=== PATIENT | female | born 1975 | race Caucasian/White ===

== ENCOUNTER 2018-07-19 17:35 | Emergency (ER) | payer BC ==
[~2018-07-19] VITALS: Ht 175.3 cm; Wt 69.2 kg
[2018-07-19 18:33] LABS: BASOPHILS # (AUTO) 0.06 x10^3/uL (0-0.1); BASOPHILS % (AUTO) 1 % (0-1); EOSINOPHILS % (AUTO) 3 % (1-7); LYMPHOCYTES # (AUTO) 2.53 x10^3/uL (1-3.4); LYMPHOCYTES % (AUTO) 29 % (22-44); MD NO; MEAN CORPUSCULAR HEMOGLOBIN 32.5 pg (27.0-34.8); MEAN CORPUSCULAR HGB CONC 33.8 g/dL (32.4-35.8); MEAN CORPUSCULAR VOLUME 96.1 fL (80-100); MEAN PLATELET VOLUME 7.7 fL (7.4-10.4); MONOCYTES # (AUTO) 0.64 x10^3/uL (0.2-0.8); MONOCYTES % (AUTO) 7 % (2-9); NEUTROPHILS # (AUTO) 5.16 x10^3/uL (1.8-6.8); NEUTROPHILS % (AUTO) 59 % (42-75); PLATELET COUNT 447 x10^3/uL (130-400); RED BLOOD COUNT 4.14 x10^6/uL (3.82-5.3); RED CELL DISTRIBUTION WIDTH 17.6 % (9.6-15.2)
[2018-07-19 18:43] LABS: ALANINE AMINOTRANSFERASE 11 U/L (12-78); ALBUMIN 3.6 g/dL (3.4-5.0); ANION GAP 7 mmol/L (5-15); CALCIUM 9.2 mg/dL (8.5-10.1); CHLORIDE 111 mmol/L (98-107)
[2018-07-19 18:46] LABS: ALKALINE PHOSPHATASE 79 U/L (45-117); BILIRUBIN,TOTAL 0.3 mg/dL (0.2-1.0); CREATININE 0.95 mg/dL (0.55-1.02); SALICYLATE LEVEL 2.8 mg/dL (2.8-20.0); TOTAL PROTEIN 7.5 g/dL (6.4-8.2)
[2018-07-19 18:52] LABS: THYROID STIMULATING HORMONE 0.564 mIU/L (0.358-3.740)
[2018-07-19 18:54] LABS: ACETAMINOPHEN < 2 mcg/mL (10-30)
[2018-07-19 19:22] LABS: MICROSCOPIC INDICATED
[2018-07-19 19:23] LABS: AMPHETAMINE SCREEN, URINE Negative (Negative); BARBITURATE SCREEN, URINE Negative (Negative); BENZODIAZEPINE SCREEN, URINE Positive (Negative); CANNABINOID SCREEN, URINE Positive (Negative); COCAINE SCREEN, URINE Positive (Negative); METHADONE SCREEN, URINE Negative (Negative); OPIATE SCREEN, URINE Negative (Negative)
[2018-07-19 19:36] LABS: CULTURE INDICATED? YES
[2018-07-19 21:15] VITALS: BP 110/70
== END 2018-07-19 21:17 | disposition home or self-care (01) ==
LOC: ED 21:13
DX: R10.84 Generalized abdominal pain (principal); F10.10 Alcohol abuse, uncomplicated; F14.10 Cocaine abuse, uncomplicated; F12.10 Cannabis abuse, uncomplicated; F13.10 Sedative, hypnotic or anxiolytic abuse, uncomplicated; G89.29 Other chronic pain; J44.9 Chronic obstructive pulmonary disease, unspecified; F41.1 Generalized anxiety disorder; Z79.899 Other long term (current) drug therapy
CPT/HCPCS: 36415; 74021; 80053; 80307; 80329; 81001; 83690; 84443; 84703; 85025; 87086; 99285; G0480

== ENCOUNTER 2019-01-01 15:49 | Inpatient (IN) | payer BC ==
[~2019-01-01] VITALS: Ht 175.3 cm; Wt 81.1 kg
--- NOTE | 2019-01-01 15:57 | NUR ---
BIB [facility] AFTER PT CALLED 911 AFTER TAKING 5800 MG TRAZODONE AND 1 PINT VODKA IN AN SA ATTEMPT. PT STATES SHE TOOK PILLS AND ETOH AT 1500. PT AOX4. VSS INDUCTION BRAZER HR 90, RR 15, 94-96% RA, BS 160. HX SI W/ SA X3-4 TIMES. LAST ATTEMPT WAS IN SEPTEMBER 2018. PT RESTING ON GURNEY. MONITORS APPLIED. SECOND PIV INITIATED. EKG COMPLETED. WARM BLANKETS PROVIDED.
[2019-01-01] MEDS ORDERED: ESCI5TAB7 PO (16:05)
[2019-01-01] MEDS ORDERED: LAMO25TA6 PO (16:05)
[2019-01-01] MEDS ORDERED: LEVO150T PO (16:05)
[2019-01-01] MEDS ORDERED: TRAZ-137 PO (16:05)
[2019-01-01] MEDS ORDERED: CHARCOAL/SORBITOL 50 GM/240 ML ONE (16:08)
--- NOTE | 2019-01-01 16:18 | NUR ---
PT DRANK ALL CHARCOAL PO AND IMMEDIATELY HAD A LARGE 500 CC BOUT OF EMESIS. ERP NOTIFIED. NO NEED TO REPEAT DOSE OF CHARCOAL PER ERP.
[2019-01-01 16:24] LABS: BASOPHILS # (AUTO) 0.03 x10^3/uL (0-0.1); BASOPHILS % (AUTO) 0 % (0-1); EOSINOPHILS # (AUTO) 0.09 x10^3/uL (0-0.4); EOSINOPHILS % (AUTO) 1 % (1-7); LYMPHOCYTES # (AUTO) 2.46 x10^3/uL (1-3.4); LYMPHOCYTES % (AUTO) 29 % (22-44); MD NO; MEAN CORPUSCULAR HEMOGLOBIN 31.8 pg (27.0-34.8); MEAN CORPUSCULAR HGB CONC 33.7 g/dL (32.4-35.8); MEAN CORPUSCULAR VOLUME 94.3 fL (80-100); MONOCYTES # (AUTO) 0.45 x10^3/uL (0.2-0.8); MONOCYTES % (AUTO) 5 % (2-9); NEUTROPHILS # (AUTO) 5.53 x10^3/uL (1.8-6.8); NEUTROPHILS % (AUTO) 65 % (42-75); PLATELET COUNT 314 x10^3/uL (130-400); RED BLOOD COUNT 4.05 x10^6/uL (3.82-5.3); RED CELL DISTRIBUTION WIDTH 15.8 % (9.6-15.2)
[2019-01-01] MEDS ORDERED: SODIUM CHLORIDE 0.9% 1,000ML IVBOLUS ONE (16:30)
[2019-01-01] MEDS ORDERED: CHARCOAL/SORBITOL 50 GM/240 ML PO ONE (16:30)
[2019-01-01] MEDS ORDERED: ONDANSETRON 2MG/ML, 2ML IVPush ONE (16:30)
[2019-01-01 16:31] LABS: ALANINE AMINOTRANSFERASE 11 U/L (12-78); ALBUMIN 3.5 g/dL (3.4-5.0); ANION GAP 10 mmol/L (5-15); CALCIUM 8.5 mg/dL (8.5-10.1); CHLORIDE 112 mmol/L (98-107); CREATININE 0.88 mg/dL (0.55-1.02)
[2019-01-01 16:34] LABS: ALKALINE PHOSPHATASE 57 U/L (45-117); BILIRUBIN,TOTAL 0.2 mg/dL (0.2-1.0); TOTAL PROTEIN 6.8 g/dL (6.4-8.2)
[2019-01-01] MEDS ORDERED: ONDANSETRON 2MG/ML, 2ML ONE (16:34)
[2019-01-01 16:36] LABS: ACETAMINOPHEN < 2 mcg/mL (10-30)
--- NOTE | 2019-01-01 16:53 | NUR ---
RECEIVED REPORT FROM JAYA SERRANO. PT RESTING IN BED IN NAD. PT HAS EMESIS BAG IN CASE OF ANY MORE NAUSEA. PT ON MONITOR AND FAMILY AT BEDSIDE.
[2019-01-01] MEDS ORDERED: POTASSIUM CHLORIDE 20 MEQ TAB.ER.PRT ONE (16:56)
[2019-01-01] MEDS ORDERED: POTASSIUM CHLORIDE 20 MEQ TAB.ER.PRT PO ONE (17:00)
--- NOTE | 2019-01-01 17:05 | NUR ---
ALL BELONGINGS PLACED IN SECURITY LOCKER IN TWO BAGS AND LABELED WITH PT STICKERS.
--- NOTE | 2019-01-01 17:32 | NUR ---
PT TO GO TO FLOOR ONCE SITTER ARRIVES FROM NURSING OPS.
[2019-01-01 17:58] VITALS: BP 91/53
[2019-01-01] MEDS ORDERED: NICOTINE 7 MG/24 HR PATCH.TD24 TD SCH (18:00)
[2019-01-01] MEDS ORDERED: LIDODERM 5% PATCH TD PRN (18:00)
[2019-01-01] MEDS ORDERED: ENALAPRILAT 1.25 MG/ML, 2ML IVPush PRN (18:00)
[2019-01-01] MEDS: HEPARIN 5,000 UNITS/ML, 1ML SQ SCH (18:09)
[2019-01-01] MEDS: SODIUM CHLORIDE 0.9% 1,000 ML IV SCH (18:39)
[2019-01-01 19:17] VITALS: BP 91/53
[2019-01-01 19:54] LABS: AMPHETAMINE SCREEN, URINE Negative (Negative); BARBITURATE SCREEN, URINE Negative (Negative); BENZODIAZEPINE SCREEN, URINE Negative (Negative); CANNABINOID SCREEN, URINE Negative (Negative); COCAINE SCREEN, URINE Negative (Negative); METHADONE SCREEN, URINE Negative (Negative); OPIATE SCREEN, URINE Negative (Negative)
[2019-01-01] MEDS: LAMOTRIGINE 25 MG TABLET PO SCH (20:54)
[2019-01-01 21:20] VITALS: BP 90/59
[2019-01-02] VITALS (12 sets, daily range): BP systolic 87–104; BP diastolic 46–75
[2019-01-02] MEDS: HEPARIN 5,000 UNITS/ML, 1ML SQ SCH ×3 (02:00→18:23)
[2019-01-02] MEDS: SODIUM CHLORIDE 0.9% 1,000 ML IV SCH ×2 (03:53→14:19)
[2019-01-02 04:09] LABS: ALANINE AMINOTRANSFERASE 9 U/L (12-78); ANION GAP 7 mmol/L (5-15); CALCIUM 7.9 mg/dL (8.5-10.1); CHLORIDE 116 mmol/L (98-107); CREATININE 0.79 mg/dL (0.55-1.02)
[2019-01-02 04:20] LABS: ALKALINE PHOSPHATASE 47 U/L (45-117); BILIRUBIN,TOTAL 0.2 mg/dL (0.2-1.0); THYROID STIMULATING HORMONE 0.735 mIU/L (0.358-3.740)
[2019-01-02 04:24] LABS: BASOPHILS # (AUTO) 0.03 x10^3/uL (0-0.1); BASOPHILS % (AUTO) 0 % (0-1); EOSINOPHILS # (AUTO) 0.11 x10^3/uL (0-0.4); EOSINOPHILS % (AUTO) 1 % (1-7); LYMPHOCYTES # (AUTO) 2.75 x10^3/uL (1-3.4); LYMPHOCYTES % (AUTO) 35 % (22-44); MD NO; MEAN CORPUSCULAR VOLUME 96.9 fL (80-100); MEAN PLATELET VOLUME 8.1 fL (7.4-10.4); MONOCYTES % (AUTO) 8 % (2-9); NEUTROPHILS # (AUTO) 4.49 x10^3/uL (1.8-6.8); NEUTROPHILS % (AUTO) 56 % (42-75); PLATELET COUNT 293 x10^3/uL (130-400); RED CELL DISTRIBUTION WIDTH 15.7 % (9.6-15.2)
[2019-01-02] MEDS: LEVOTHYROXINE 150 MCG TABLET PO SCH (05:55)
[2019-01-02] MEDS: ESCITALOPRAM 10MG TABLET PO SCH (10:37)
[2019-01-02] MEDS: LAMOTRIGINE 25 MG TABLET PO SCH ×2 (10:37→21:14)
[2019-01-02] MEDS: LORazepam 0.5MG TABLET PO PRN ×2 (14:19→18:23)
[2019-01-02] MEDS ORDERED: NICOTINE 14MG/24 HR PATCH.TD24 TD SCH (21:00)
[2019-01-03 00:24] VITALS: BP 117/70
[2019-01-03] MEDS: SODIUM CHLORIDE 0.9% 1,000 ML IV SCH ×2 (00:29→10:28)
[2019-01-03] MEDS: HEPARIN 5,000 UNITS/ML, 1ML SQ SCH ×2 (03:10→10:00)
[2019-01-03 03:12] VITALS: BP 96/61
[2019-01-03 03:47] VITALS: BP 98/64
[2019-01-03] MEDS: LEVOTHYROXINE 150 MCG TABLET PO SCH (05:00)
[2019-01-03 05:02] VITALS: BP 102/65
[2019-01-03] MEDS: LORazepam 0.5MG TABLET PO PRN (05:37)
[2019-01-03 08:02] VITALS: BP 95/62
[2019-01-03] MEDS: LAMOTRIGINE 25 MG TABLET PO SCH (08:36)
[2019-01-03] MEDS: ESCITALOPRAM 10MG TABLET PO SCH (08:36)
== END 2019-01-03 12:27 | DRG 918 ==
LOC: ED 17:04 → EDIP 17:05 → ED 17:13 → 4EST 17:43 → OBSVTOIN 17:47 → 4EST 17:56
PROVIDERS: ADMIT Family Medicine; ATTEND Family Medicine
DX: T43.212A Poisoning by selective serotonin and norepinephrine reuptake inhibitors, intentional self-harm, initial encounter (principal); Y92.89 Other specified places as the place of occurrence of the external cause; F32.9 Major depressive disorder, single episode, unspecified; F17.210 Nicotine dependence, cigarettes, uncomplicated; F10.129 Alcohol abuse with intoxication, unspecified; E89.0 Postprocedural hypothyroidism; J44.9 Chronic obstructive pulmonary disease, unspecified; E87.6 Hypokalemia; Z91.5 Personal history of self-harm; Z88.6 Allergy status to analgesic agent; G89.29 Other chronic pain
CPT/HCPCS: 36415; 80053; 80307; 80329; 83735; 84100; 84443; 84703; 85025; 93005; 96361; 96374; G0378; J1644; J2405; G0480; J7030

== ENCOUNTER 2020-10-26 18:21 | Emergency (ER) | payer BC, MEDICAID ==
[~2020-10-26] VITALS: Ht 175.3 cm; Wt 81.0 kg
[~2020-10-26 18:21] MED LIST: ESCI5TAB7 PO; LAMO25TA6 PO; LEVO150T PO; TRAZ-175 PO
--- NOTE | 2020-10-26 21:13 | NUR ---
UTILITIES GROUND WORKER: PT WHEELED BACK FROM LOBBY TO ROOM AT THIS TIME.
[2020-10-26 21:34] VITALS: BP 125/79
[2020-10-26] MEDS ORDERED: KETOROLAC 30 MG/1 ML IM ONE (22:00)
[2020-10-26] MEDS ORDERED: KETOROLAC 30 MG/1 ML ONE (22:10)
[2020-10-26] MEDS ORDERED: CEFTRIAXONE 1,000 MG ONE (22:44)
[2020-10-26] MEDS ORDERED: AZITHROMYCIN 500 MG TABLET ONE (22:44)
[2020-10-26] MEDS ORDERED: DEXAMETHASONE 4 MG TABLET ONE (22:45)
[2020-10-26] MEDS ORDERED: AZITHROMYCIN 500 MG TABLET PO ONE (23:00)
[2020-10-26] MEDS ORDERED: DEXAMETHASONE 4 MG TABLET PO ONE (23:00)
[2020-10-26] MEDS ORDERED: CEFTRIAXONE 1,000 MG IM ONE (23:00)
--- NOTE | 2020-10-26 23:00 | NUR ---
PT AMBULATED STEADILY TO DISCHARGE DESK.
== END 2020-10-26 23:03 | disposition home or self-care (01) ==
LOC: ED 22:30
DX: S90.821A Blister (nonthermal), right foot, initial encounter (principal); Z20.828 Contact with and (suspected) exposure to other viral communicable diseases; J12.9 Viral pneumonia, unspecified; F15.10 Other stimulant abuse, uncomplicated; R09.81 Nasal congestion; R05 Cough; M79.10 Myalgia, unspecified site; F17.210 Nicotine dependence, cigarettes, uncomplicated; X58.XXXA Exposure to other specified factors, initial encounter; Y93.89 Activity, other specified; Y92.89 Other specified places as the place of occurrence of the external cause; Y99.8 Other external cause status
CPT/HCPCS: 71045; 73630; 87635; 96372; 99284; J0696; J1885

== ENCOUNTER 2021-05-10 11:05 | Emergency (ER) | payer MEDICAID ==
[~2021-05-10] VITALS: Ht 175.3 cm; Wt 77.3 kg
--- NOTE | 2021-05-10 11:55 | NUR ---
employment legal assistant: Pt ambulatory to room from lobby at this time.
[2021-05-10] MEDS ORDERED: PROMETHAZINE 25 MG/ML, 1ML IM ONE (12:30)
[2021-05-10] MEDS ORDERED: CEFTRIAXONE 1,000 MG IM ONE (12:30)
[2021-05-10] MEDS ORDERED: PROMETHAZINE 25 MG/ML, 1ML ONE (12:51)
[2021-05-10] MEDS ORDERED: CEFTRIAXONE 1,000 MG ONE (12:51)
[2021-05-10] MEDS ORDERED: ONDANSETRON ODT 4 MG PO ONE (13:00)
[2021-05-10] MEDS ORDERED: METHOCARBAMOL 500 MG TABLET PO ONE (13:00)
[2021-05-10 13:15] LABS: BASOPHILS % (AUTO) 0 % (0-1); EOSINOPHILS % (AUTO) 0 % (1-7); LYMPHOCYTES % (AUTO) 14 % (22-44); MEAN CORPUSCULAR HEMOGLOBIN 31.8 pg (27.0-34.8); MEAN CORPUSCULAR HGB CONC 33.7 g/dL (32.4-35.8); MEAN PLATELET VOLUME 8.1 fL (7.4-10.4); MONOCYTES % (AUTO) 4 % (2-9); NEUTROPHILS % (AUTO) 82 % (42-75); PLATELET COUNT 387 x10^3/uL (130-400); RED BLOOD COUNT 3.94 x10^6/uL (3.82-5.3); RED CELL DISTRIBUTION WIDTH 15.5 % (9.6-15.2)
[2021-05-10 13:28] LABS: ALBUMIN 3.3 g/dL (3.4-5.0); ANION GAP 8 mmol/L (5-15); CALCIUM 9.4 mg/dL (8.5-10.1); CHLORIDE 109 mmol/L (98-107)
[2021-05-10] MEDS ORDERED: cloniDINE 0.1MG PATCH TD ONE (13:30)
[2021-05-10 13:34] LABS: MICROSCOPIC INDICATED
--- NOTE | 2021-05-10 13:34 | NUR ---
REPORT RECEIVED FROM MAGGIE GONZALEZ FOR TRANSFER OF PATIENT CARE.
[2021-05-10 13:36] LABS: ALANINE AMINOTRANSFERASE 49 U/L (12-78); ALKALINE PHOSPHATASE 182 U/L (45-117); BILIRUBIN,TOTAL 0.3 mg/dL (0.2-1.0); TOTAL PROTEIN 8.2 g/dL (6.4-8.2)
--- NOTE | 2021-05-10 13:40 | NUR ---
COVID SWAB COLLECTED AND WALKED TO LAB FOR U ADMISSION, PATIENT MEDICATED PER BENNY Graham, CALL LIGHT WITHIN REACH.
[2021-05-10 14:19] LABS: AMPHETAMINE SCREEN, URINE Positive (Negative); BARBITURATE SCREEN, URINE Negative (Negative); BENZODIAZEPINE SCREEN, URINE Negative (Negative); CANNABINOID SCREEN, URINE Positive (Negative); COCAINE SCREEN, URINE Negative (Negative); METHADONE SCREEN, URINE Negative (Negative); OPIATE SCREEN, URINE Positive (Negative)
[2021-05-10] MEDS ORDERED: DIPHENHYDRAMINE 25 MG CAPSULE PO ONE (14:30)
[2021-05-10] MEDS ORDERED: MAALOX/HYOSCYAMINE/LIDOCAINE 45 ML BTL PO ONE (14:30)
--- NOTE | 2021-05-10 14:41 | NUR ---
TP RN: FARHEEN NEGATIVE, PER LIVIA PSYCH OILFIELD PLANT AND FIELD OPERATOR U TO TAKE PT. AWAITING BED ASSIGNMENT.
--- NOTE | 2021-05-10 14:50 | NUR ---
GERONIMO RN: DR.V ESTEE GARCÍA
[2021-05-10] MEDS ORDERED: FAMOTIDINE 20 MG TABLET PO ONE (15:00)
[2021-05-10 15:20] VITALS: BP 116/77
--- NOTE | 2021-05-10 15:20 | NUR ---
REPORT TO MAGGIE PASCAL FOR TRANSFER OF PATIENT CARE.
[2021-05-10] MEDS ORDERED: FAMOTIDINE 20 MG TABLET ONE (15:23)
[2021-05-10] MEDS ORDERED: MAALOX/HYOSCYAMINE/LIDOCAINE 45 ML BTL ONE (15:23)
[2021-05-10] MEDS ORDERED: DIPHENHYDRAMINE 25 MG CAPSULE ONE (15:23)
--- NOTE | 2021-05-10 15:52 | NUR ---
Patient given discharge instructions and they have confirmed that they understand the instructions. Patient wheeled to U with press technician. NAD, all questions answered appropriately, denies additional needs at this time. No personal belongings left in room.
[2021-05-10] MEDS ORDERED: AMOX875T PO (16:06)
[2021-05-10] MEDS ORDERED: LITH300T30 PO (17:40)
[2021-05-10] MEDS ORDERED: TRAZ150T62 PO (17:40)
== END 2021-05-10 15:53 ==
LOC: ED 13:17
DX: J02.0 Streptococcal pharyngitis (principal); Z20.822 Contact with and (suspected) exposure to COVID-19; R11.2 Nausea with vomiting, unspecified; K29.00 Acute gastritis without bleeding; F11.23 Opioid dependence with withdrawal; R94.31 Abnormal electrocardiogram [ECG] [EKG]; F17.200 Nicotine dependence, unspecified, uncomplicated; Z88.6 Allergy status to analgesic agent
CPT/HCPCS: 36415; 80053; 80307; 81001; 84443; 84703; 85025; 87086; 87426; 93005; 96372; 99285; J0696; J2550; Q0163

== ENCOUNTER 2021-05-10 15:05 | Inpatient (IN) | payer MEDICAID ==
[~2021-05-10] VITALS: Ht 175.3 cm; Wt 77.7 kg
[2021-05-10] MEDS ORDERED: POLYETHYLENE GLYCOL 17 GM PACKET PO PRN (16:00)
[2021-05-10] MEDS ORDERED: ONDANSETRON ODT 4 MG PO PRN (16:00)
[2021-05-10] MEDS ORDERED: BISACODYL 10 MG SUPP PR PRN (16:00)
[2021-05-10] MEDS ORDERED: AMOX875T PO (16:06)
[2021-05-10 16:28] VITALS: BP 117/73
[2021-05-10] MEDS ORDERED: TRAZ150T62 PO (17:40)
[2021-05-10] MEDS ORDERED: LITH300T30 PO (17:40)
[2021-05-10] MEDS ORDERED: NICOTINE 14MG/24 HR PATCH.TD24 TD SCH (19:00)
[2021-05-10] MEDS: ACETAMINOPHEN 325 MG TABLET PO PRN (19:26)
[2021-05-10] MEDS ORDERED: BUPRENORPHINE/NALOXONE 2-0.5MG SL ONE (19:30)
[2021-05-10 19:50] VITALS: BP 118/69
[2021-05-10] MEDS: AMOXICILLIN/CLAV 875-125MG TABLET PO SCH (20:26)
[2021-05-11] MEDS: ACETAMINOPHEN 325 MG TABLET PO PRN (02:45)
[2021-05-11 05:50] LABS: CHOL/HDL RATIO 5.4; LDL/HDL RATIO 3.8 (0.5-3.0)
[2021-05-11] MEDS ORDERED: IBUPROFEN 200 MG TABLET ONE (06:05)
[2021-05-11] MEDS ORDERED: METHOCARBAMOL 500 MG TABLET ONE (06:05)
[2021-05-11] MEDS: METHOCARBAMOL 500 MG TABLET PO PRN (06:08)
[2021-05-11] MEDS: IBUPROFEN 600 MG TABLET PO PRN ×3 (06:08→20:18)
[2021-05-11 07:25] VITALS: BP 103/66
[2021-05-11] MEDS: NICOTINE 14MG/24 HR PATCH.TD24 TD SCH (08:58)
[2021-05-11] MEDS: AMOXICILLIN/CLAV 875-125MG TABLET PO SCH ×2 (08:58→20:18)
[2021-05-11] MEDS: BUPRENORPHINE/NALOXONE 2-0.5MG SL SCH ×2 (08:59→20:18)
[2021-05-11] MEDS: DULOXETINE 30 MG CAPSULE.DR PO SCH (13:09)
[2021-05-11 19:15] VITALS: BP 136/87
[2021-05-11] MEDS: DOCUSATE 100 MG CAPSULE PO PRN (20:18)
[2021-05-12 06:05] LABS: BASOPHILS % (AUTO) 1 % (0-1); EOSINOPHILS % (AUTO) 3 % (1-7); LYMPHOCYTES % (AUTO) 42 % (22-44); MEAN CORPUSCULAR HGB CONC 33.5 g/dL (32.4-35.8); MEAN PLATELET VOLUME 7.7 fL (7.4-10.4); MONOCYTES % (AUTO) 9 % (2-9); NEUTROPHILS % (AUTO) 45 % (42-75); PLATELET COUNT 373 x10^3/uL (130-400); RED BLOOD COUNT 3.78 x10^6/uL (3.82-5.3); RED CELL DISTRIBUTION WIDTH 15.7 % (9.6-15.2)
[2021-05-12 06:15] LABS: ANION GAP 7 mmol/L (5-15); CALCIUM 8.7 mg/dL (8.5-10.1); CHLORIDE 109 mmol/L (98-107); CREATININE 0.63 mg/dL (0.55-1.02)
[2021-05-12 07:20] VITALS: BP 102/69
[2021-05-12] MEDS: BUPRENORPHINE/NALOXONE 2-0.5MG SL SCH ×2 (09:00→20:07)
[2021-05-12] MEDS: AMOXICILLIN/CLAV 875-125MG TABLET PO SCH ×2 (09:18→20:06)
[2021-05-12] MEDS: NICOTINE 14MG/24 HR PATCH.TD24 TD SCH (09:18)
[2021-05-12] MEDS: DOCUSATE 100 MG CAPSULE PO PRN (09:18)
[2021-05-12] MEDS: DULOXETINE 30 MG CAPSULE.DR PO SCH (09:18)
[2021-05-12] MEDS: IBUPROFEN 600 MG TABLET PO PRN ×2 (09:25→15:17)
[2021-05-12] MEDS: LEVOTHYROXINE 25 MCG TABLET PO SCH (11:00)
[2021-05-12 19:36] VITALS: BP 102/76
[2021-05-12] MEDS: ACETAMINOPHEN 325 MG TABLET PO PRN (20:06)
[2021-05-12] MEDS: METHOCARBAMOL 500 MG TABLET PO PRN (20:06)
[2021-05-13] MEDS: LEVOTHYROXINE 25 MCG TABLET PO SCH (05:54)
[2021-05-13 07:39] VITALS: BP 102/66
[2021-05-13] MEDS: AMOXICILLIN/CLAV 875-125MG TABLET PO SCH ×2 (08:12→20:46)
[2021-05-13] MEDS: DULOXETINE 30 MG CAPSULE.DR PO SCH (08:12)
[2021-05-13] MEDS: IBUPROFEN 600 MG TABLET PO PRN ×2 (08:12→17:06)
[2021-05-13] MEDS: NICOTINE 14MG/24 HR PATCH.TD24 TD SCH (08:12)
[2021-05-13] MEDS: BUPRENORPHINE/NALOXONE 2-0.5MG SL SCH ×2 (08:15→20:46)
[2021-05-13] MEDS: DOCUSATE 100 MG CAPSULE PO PRN (08:24)
[2021-05-13 19:40] VITALS: BP 100/66
[2021-05-13] MEDS: METHOCARBAMOL 500 MG TABLET PO PRN (20:46)
[2021-05-14] MEDS: LEVOTHYROXINE 25 MCG TABLET PO SCH (06:00)
[2021-05-14 06:06] LABS: BASOPHILS % (AUTO) 1 % (0-1); EOSINOPHILS % (AUTO) 3 % (1-7); LYMPHOCYTES % (AUTO) 41 % (22-44); MEAN CORPUSCULAR HEMOGLOBIN 32.3 pg (27.0-34.8); MEAN PLATELET VOLUME 7.4 fL (7.4-10.4); MONOCYTES % (AUTO) 7 % (2-9); NEUTROPHILS % (AUTO) 48 % (42-75); PLATELET COUNT 420 x10^3/uL (130-400); RED CELL DISTRIBUTION WIDTH 15.3 % (9.6-15.2)
[2021-05-14 07:38] VITALS: BP 104/72
[2021-05-14] MEDS: IBUPROFEN 600 MG TABLET PO PRN (08:32)
[2021-05-14] MEDS: DOCUSATE 100 MG CAPSULE PO PRN (08:32)
[2021-05-14] MEDS: AMOXICILLIN/CLAV 875-125MG TABLET PO SCH (08:32)
[2021-05-14] MEDS: NICOTINE 14MG/24 HR PATCH.TD24 TD SCH (08:32)
[2021-05-14] MEDS: BUPRENORPHINE/NALOXONE 2-0.5MG SL SCH (08:35)
[2021-05-14] MEDS ORDERED: CITALOPRAM 20 MG TABLET PO SCH (09:00)
[2021-05-14] MEDS ORDERED: DULOXETINE 30 MG CAPSULE.DR PO SCH (09:00)
== END 2021-05-14 10:35 | disposition left against medical advice (07) | DRG 885 ==
LOC: 3E 15:46
PROVIDERS: ADMIT Psychiatry & Neurology Psychosomatic Medicine; ATTEND Psychiatry & Neurology Psychosomatic Medicine
DX: F33.2 Major depressive disorder, recurrent severe without psychotic features (principal); F11.20 Opioid dependence, uncomplicated; F15.20 Other stimulant dependence, uncomplicated; E03.9 Hypothyroidism, unspecified; F12.10 Cannabis abuse, uncomplicated; F17.210 Nicotine dependence, cigarettes, uncomplicated; J44.9 Chronic obstructive pulmonary disease, unspecified; Z91.14 Patient's other noncompliance with medication regimen; Z91.5 Personal history of self-harm; Z88.5 Allergy status to narcotic agent; F10.20 Alcohol dependence, uncomplicated; Z53.29 Procedure and treatment not carried out because of patient's decision for other reasons
CPT/HCPCS: 36415; J0572; 71045; 80048; 80061; 83735; 84443; 85025; Q0162